=== PATIENT | female | born 1955 | race Caucasian/White ===

== ENCOUNTER 2019-09-19 06:51 | Day surgery (SDC) | payer BC ==
[2019-09-19] MEDS ORDERED: Lactated Ringers 1,000 ML IV SCH (07:00)
[2019-09-19] MEDS ORDERED: ASTRINGYN 8 GM TP ONE (07:11)
[2019-09-19] MEDS ORDERED: Lactated Ringers 1,000 ML IV ONE ×2 (07:11→07:44)
[2019-09-19] MEDS ORDERED: XYLOCAINE 1%/Epi 1:100000 MDV 20 ML ONE (07:22)
[2019-09-19] MEDS ORDERED: Versed 2 MG/2 ML Injection ONE (08:46)
[2019-09-19] MEDS ORDERED: Zofran 4 MG/2 ML VIAL ONE (08:46)
[2019-09-19] MEDS ORDERED: SUBLIMAZE 100 MCG/2 ML ONE (08:46)
[2019-09-19] MEDS ORDERED: DIPRIVAN 200 MG/20 ML IV ONE (08:46)
[2019-09-19] MEDS ORDERED: Decadron 4 MG INJ ONE (08:46)
[2019-09-19 10:16] VITALS: BP 132/55; PULSE 66; O2SAT 100
--- NOTE | 2019-09-20 14:28 | OP ---
SURGERY DATE: 09/19/2019 SURGERY TIME: 843 PREOPERATIVE DIAGNOSIS: 1. 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 POSTOPERATIVE DIAGNOSIS: 1. 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 PROCEDURE: 1. Loop electrosurgical excision procedure. SURGEON: Dr. Yevgeniy Driscoll. POOL TABLE MECHANIC: plastic surgery technician. ANESTHESIA: General. ESTIMATED BLOOD LOSS: Minimal. COMPLICATIONS: None. FINDINGS: The risks, benefits, indications, and alternatives of the procedure were reviewed with the patient prior to the procedure. Patient understood the risks of infection, bleeding, bowel injury, bladder injury, ureteral injury, decreased sex drive, anorgasmia, and thrombophilia disorder that may be associated with this procedure and desires to have this procedure as a possible means to alleviate her current medical condition. DESCRIPTION OF PROCEDURE: At this point, the patient was taken to the operating room, given general anesthesia, placed in the dorsal lithotomy position, and prepped and draped in the usual sterile fashion. A curved speculum was then placed in the patient's vagina and the cervix was then circumferentially injected with 1% Lidocaine with epinephrine. At this point, the looped instrument was then used and was used to excise the ectocervical portion in a right to left motion. The loop was taken through the ectocervical tissue with an end depth of 7-8 mm and it was done so without complication. In addition 2-3 mm of the endocervical tissue was taken as well. At this point, the loop artist model ball was placed on the surface of the cervix for further hemostasis. From this point, Monsel solution was placed on the cervix as well. At this point, all of our instruments were then removed from the patient's vaginal region. The patient was then taken out of the dorsal lithotomy position and was then taken to the recovery room in stable condition. All instruments and laps were accounted for X 2.
== END 2019-09-19 10:25 | disposition home or self-care (01) ==
LOC: SDC 06:51
PROVIDERS: ATTEND Obstetrics & Gynecology
DX: R87.619 Unspecified abnormal cytological findings in specimens from cervix uteri (principal); R87.810 Cervical high risk human papillomavirus (HPV) DNA test positive
CPT/HCPCS: 57460; 58110; J1100; J2250; J2405; J2704; J3010; A9270-GY

== ENCOUNTER 2025-02-25 14:40 | Emergency (ER) | payer MEDICARE, OTHER ==
[2025-02-25 14:57] VITALS: TEMP 97.8
--- NOTE | 2025-02-25 15:33 | ERPHSYRPT ---
- History of Present Illness Time Seen by Provider: 02/25/25 15:00 Historian: patient Exam Limitations: no limitations Patient Subjective Stated Complaint: constipation Triage Nursing Assessment: Patient walks to the bed, breathing is easy,skin warm and dry. She states that she has not had a bowel movement since Wednesday. She does have a history of constipation. She also did an enema this morning and states she had some blood when she wiped. Her belly is tender to palpation and bowel sounds are present time 4. Physician History: 70-year-old female presents to the emergency room with constipation patient reports she has had decreased stool output since Wednesday she has tried enemas and laxatives and suppositories with minimal improvement or improvement she has had constant patient in the past she has had colonoscopy in the past has been 10 years she is due for 1 now she denies any vomiting she denies any nausea she denies any prior abdominal surgeries denies any chest pain or shortness of breath denies any rash she is now in ED for further eval Timing/Duration: day(s) (5) Activities at Onset: none Abdominal Pain Onset Location: generalized abdomen Pain Radiation: no radiation Severity of Pain-Max: mild Severity of Pain-Current: mild Modifying Factors: Improves With: nothing Associated Symptoms: No headache, No neck pain, No rash, No shortness of breath Allergies/Adverse Reactions: No Known Drug Allergies Allergy (Verified 09/19/19 07:18) Home Medications: ALPRAZolam [Xanax 0.5 mg] 1 mg PO TID PRN 07/27/14 [History] Levothyroxine Sodium 25 Mcg [Synthroid 25 Mcg] 25 mcg PO DAILY 07/27/14 [History] Valacyclovir HCl [Valacyclovir] 1,000 mg PO DAILY 09/15/19 [History] Trazodone HCl 100 mg PO DAILY 02/25/25 [History] Hx Tetanus, Diphtheria Vaccination/Date Given: No Hx Influenza Vaccination/Date Given: Yes Hx Pneumococcal Vaccination/Date Given: Yes Travel Risk - International Travel Have you traveled outside of the country in past 3 weeks: No - Emerging Infectious Disease Are you exhibiting symptoms associated with any current EIDs: No - Review of Systems Constitutional: No Fever, No Chills Eyes: No Symptoms Ears, Nose, & Throat: No Symptoms Respiratory: No Cough, No Dyspnea Cardiac: No Chest Pain, No Edema, No Syncope Abdominal/Gastrointestinal: Abdominal Pain, Constipation, No Nausea, No Vomiting, No Diarrhea Genitourinary Symptoms: No Dysuria Musculoskeletal: No Back Pain, No Neck Pain Skin: No Rash Neurological: No Dizziness, No Focal Weakness, No Sensory Changes Psychological: No Symptoms Endocrine: No Symptoms All Other Systems: Reviewed and Negative - Past Medical History Pertinent Past Medical History: Yes Neurological History: No Pertinent History ENT History: No Pertinent History Cardiac History: No Pertinent History Respiratory History: No Pertinent History Endocrine Medical History: Hypothyroidism Musculoskeletal History: No Pertinent History GI Medical History: No Pertinent History History: No Pertinent History Psycho-Social History: Anxiety Female Reproductive Disorders: No Pertinent History Other Medical History: abnormal pap, anxiety - Past Surgical History Past Surgical History: Yes Neuro Surgical History: No Pertinent History Cardiac: No Pertinent History Respiratory: No Pertinent History Gastrointestinal: No Pertinent History, Hernia Repair Genitourinary: No Pertinent History Musculoskeletal: Orthopedic Surgery Female Surgical History: Lumpectomy Other Surgical History: back surgery,. breast lumpectomy x2 - Social History Smoking Status: Former smoker Drug Use: none - Social Determinants of Health Will the patient participate in the screening: Yes Do you worry about a steady place to live?: No Do you have any problems with any of the following?: No known problems In the past 12 months,have you had to go without utilities?: No Transportation Issues: No Has anyone in your support network made you feel unsafe?: No Have you or anyone in your house had to go w/o enough food: No - Nursing Vital Signs Nursing Vital Signs: Initial Vital Signs Temperature 97.8 F 02/25/25 14:47 Pulse Rate 85 02/25/25 14:47 Respiratory Rate 16 02/25/25 14:47 Blood Pressure 133/93 02/25/25 14:47 O2 Sat by Pulse Oximetry 97 02/25/25 14:47 Pain Scale Pain Intensity 4 - Physical Exam General Appearance: no apparent distress, alert Eye Exam: PERRL/EOMI, eyes nml inspection Ears, Nose, Throat Exam: normal ENT inspection, pharynx normal, moist mucous membranes Neck Exam: normal inspection, non-tender, supple, full range of motion Respiratory Exam: normal breath sounds, lungs clear, No respiratory distress Cardiovascular Exam: regular rate/rhythm, normal heart sounds Gastrointestinal/Abdomen Exam: soft, No tenderness, No mass Back Exam: normal inspection, normal range of motion, No CVA tenderness, No vertebral tenderness Extremity Exam: normal inspection, normal range of motion, pelvis stable Neurologic Exam: alert, oriented x 3, cooperative, normal mood/affect, nml cerebellar function, sensation nml, No motor deficits Skin Exam: normal color, warm, dry SpO2: 97 Ordered Tests: Active Orders 24 hr Category Date Time Status Enema STAT Care 02/25/25 17:55 Active IV Insertion STAT Care 02/25/25 15:13 Active NPO (ED) STAT Care 02/25/25 15:13 Active ABDOMEN AND PELVIS W CONTRAST [CT] Stat Exams 02/25/25 15:12 Completed CBC W DIFF Stat Lab 02/25/25 15:45 Completed CMP Stat Lab 02/25/25 15:45 Completed LIPASE Stat Lab 02/25/25 15:45 Completed Lactic Acid Stat Lab 02/25/25 15:12 Completed UA W/RFX UR CULTURE Stat Lab 02/25/25 16:21 Completed Medication Summary Discontinued Medications Generic Name Dose Route Start Last Admin Trade Name Jamesq PRN Reason Stop Dose Admin Sodium Chloride 1,000 mls @ 999 mls/hr 02/25/25 15:13 02/25/25 17:19 Sodium Chloride 0.9% 1000 Ml IV 02/25/25 16:13 Infused .Q1H1M STA Infusion Sodium Chloride Confirm 02/25/25 15:44 Sodium Chloride 0.9% 1000 Ml Administered 02/25/25 15:45 Dose 1,000 mls @ ud .ROUTE .STK-MED ONE Lab/Rad Data: Laboratory Result Diagrams 02/25/25 15:45 02/25/25 15:45 Laboratory Results 02/25/25 02/25/25 02/25/25 Range/Units 16:21 15:45 15:45 WBC 10.4 H (3.98-10.04) x10^3/uL RBC 4.12 (3.93-5.22) x10^6/uL Hgb 13.8 (11.2-15.7) g/dL Hct 40.5 (34.1-44.9) % MCV 98.3 H (79.4-94.8) fL MCH 33.5 H (25.6-32.2) pg MCHC 34.1 (32.2-35.5) g/dL RDW 12.1 (11.7-14.4) % Plt Count 274 (182-369) x10^3/uL MPV 9.6 (9.4-12.3) fL Gran % 63.7 (34.0-71.1) % Immature Gran % (Auto) 0.3 (0.001-0.429) % Nucleat RBC Rel Count 0.0 (0.00-0.2) % Eos # (Auto) 0.24 (0.04-0.36) x10^3/uL Immature Gran # (Auto) 0.03 (0.001-0.031) x10^3u/L Absolute Lymphs (auto) 2.77 (1.18-3.74) x10^3/uL Absolute Monos (auto) 0.64 (0.24-0.86) x10^3/uL Absolute Nucleated RBC 0.00 (0.00-0.012) x10^3u/L Lymphocytes % 26.6 (19.3-51.7) % Monocytes % 6.1 (4.7-12.5) % Eosinophils % 2.3 (0.7-5.8) % Basophils % 1.0 (0.1-1.2) % Absolute Granulocytes 6.64 H (1.56-6.13) x10^3/uL Basophils # 0.10 H (0.01-0.08) x10^3/uL Sodium 137 (135-145) mmol/L Potassium 3.7 (3.5-5.1) mmol/L Chloride 103 (98-107) mmol/L Carbon Dioxide 27 (22-30) mmol/L Anion Gap 11.2 (5-15) MEQ/L BUN 14 (7-17) mg/dL Creatinine 1.07 H (0.52-1.04) mg/dL Estimated GFR 56.2 ML/MIN Glucose 99 (74-106) mg/dL Lactic Acid (0.4-2.0) Calcium 9.5 (8.4-10.2) mg/dL Total Bilirubin 0.50 (0.2-1.3) mg/dL AST 42 H (14-36) U/L ALT 22 (0-35) U/L Alkaline Phosphatase 50 (38-126) U/L Serum Total Protein 8.0 (6.3-8.2) g/dL Albumin 4.8 (3.5-5.0) g/dL Lipase 53 (23-300) U/L Urine Color Yellow (Yellow) Urine Appearance Clear (Clear) Urine pH 6.5 (4.6-8.0) Ur Specific [place] <=1.005 (1.005-1.030) Urine Protein Negative (Negative) Urine Glucose (UA) Negative (Negative) mg/dL Urine Ketones Negative (Negative) Urine Blood Negative (Negative) Urine Nitrite Negative (Negative) Urine Bilirubin Negative (Negative) Urine Urobilinogen 0.2 (0.2) mg/dL Ur Leukocyte Esterase Negative (Negative) U Hyaline Cast (Auto) NONE SEEN (0-2) /LPF Urine Microscopic RBC 0-2 (0-5) /HPF Urine Microscopic WBC 0-2 (0-5) /HPF Ur Epithelial Cells None Seen (None Seen) /HPF Urine Bacteria None Seen (None Seen) /HPF Urine Culture Reflexed NO (NO) 02/25/25 Range/Units 15:12 WBC (3.98-10.04) x10^3/uL RBC (3.93-5.22) x10^6/uL Hgb (11.2-15.7) g/dL Hct (34.1-44.9) % MCV (79.4-94.8) fL MCH (25.6-32.2) pg MCHC (32.2-35.5) g/dL RDW (11.7-14.4) % Plt Count (182-369) x10^3/uL MPV (9.4-12.3) fL Gran % (34.0-71.1) % Immature Gran % (Auto) (0.001-0.429) % Nucleat RBC Rel Count (0.00-0.2) % Eos # (Auto) (0.04-0.36) x10^3/uL Immature Gran # (Auto) (0.001-0.031) x10^3u/L Absolute Lymphs (auto) (1.18-3.74) x10^3/uL Absolute Monos (auto) (0.24-0.86) x10^3/uL Absolute Nucleated RBC (0.00-0.012) x10^3u/L Lymphocytes % (19.3-51.7) % Monocytes % (4.7-12.5) % Eosinophils % (0.7-5.8) % Basophils % (0.1-1.2) % Absolute Granulocytes (1.56-6.13) x10^3/uL Basophils # (0.01-0.08) x10^3/uL Sodium (135-145) mmol/L Potassium (3.5-5.1) mmol/L Chloride (98-107) mmol/L Carbon Dioxide (22-30) mmol/L Anion Gap (5-15) MEQ/L BUN (7-17) mg/dL Creatinine (0.52-1.04) mg/dL Estimated GFR ML/MIN Glucose (74-106) mg/dL Lactic Acid 0.9 (0.4-2.0) Calcium (8.4-10.2) mg/dL Total Bilirubin (0.2-1.3) mg/dL AST (14-36) U/L ALT (0-35) U/L Alkaline Phosphatase (38-126) U/L Serum Total Protein (6.3-8.2) g/dL Albumin (3.5-5.0) g/dL Lipase (23-300) U/L Urine Color (Yellow) Urine Appearance (Clear) Urine pH (4.6-8.0) Ur Specific [place] (1.005-1.030) Urine Protein (Negative) Urine Glucose (UA) (Negative) mg/dL Urine Ketones (Negative) Urine Blood (Negative) Urine Nitrite (Negative) Urine Bilirubin (Negative) Urine Urobilinogen (0.2) mg/dL Ur Leukocyte Esterase (Negative) U Hyaline Cast (Auto) (0-2) /LPF Urine Microscopic RBC (0-5) /HPF Urine Microscopic WBC (0-5) /HPF Ur Epithelial Cells (None Seen) /HPF Urine Bacteria (None Seen) /HPF Urine Culture Reflexed (NO) - Progress Progress Note: 02/25/25 17:54 FINDINGS: Liver: Normal in size, shape, and density. A right lobe well-defined hypodense lesion measuring around 8 x 6 mm, likely cyst. A similar hypodensity measuring 7 x 6 mm in the left lobe, superior segment. The enhancement pattern is normal in the arterial and venous phases. Gallbladder and Biliary System: The gallbladder is normal in size and shape. No wall thickening, pericholecystic fluid, or gallstones were identified. The common bile duct is not dilated. Pancreas: The pancreatic head, body, and tail are visualized and appear normal in size and density. No pancreatic masses, cysts, or calcifications noted. Enhancement is normal in the arterial and venous phases. Spleen: Normal in size, shape, and density. No splenic lesions or masses identified. Enhancement is normal in the arterial and venous phases. Kidneys and Adrenal Glands: Both kidneys are normal in size, shape, and position. Cortical thickness is within normal limits. Few right renal non-obstructing tiny caluli.No hydronephrosis. Adrenal glands are unremarkable. Enhancement is normal in the arterial and venous phases. Appendix: The appendix is normal in size, 6.5 mm, without clint-appendiceal fat stranding, and without an appendicolith. No evidence of appendiceal abscess or perforation. Abdominal Aorta and Vessels: The abdominal aorta and major branches are patent without evidence of an aneurysm or significant atherosclerosis. Enhancement is normal in the arterial and venous phases. Peritoneal and Retroperitoneal Structures: Mild free fluid at both para-colic gutters. Non-significant aortic atheromatous calcifications. Bowel Loops: Moderately fecal-filled colon, with mild wall thickening of the distal descending and sigmoid colon. Few uncomplicated sigmoid diverticula. No evidence of bowel obstruction. Urinary bladder: Normally distended with normal wall thickness. Uterus: Normal in size. No focal lesions. Lung bases show a left lower lobar calcific nodule, measuring around 7 x 6 mm, likely a granuloma. Bibasal atelectatic bands were also noted. Lumbar spondylo-degenerative changes. IMPRESSION: 1. Moderately fecal-filled colon, with mild wall thickening of the distal descending and sigmoid colon, suggestive of stercoral colitis. No bowel obstruction. Advised clinical correlation. 2. Mild free fluid at both para-colic gutters. 3. Hepatic lobe hypodense foci, likely cysts or hemangioma. 4. A few right renal non-obstructing tiny caluli. 02/25/25 17:59 Patient was disimpacted in the ED patient was given mineral oil enema - Departure Departure Disposition: Home Clinical Impression: Stercoral colitis Constipation Qualifiers: Constipation type: unspecified constipation type Qualified Code(s): K59.00 - Constipation, unspecified Condition: Stable Critical Care Time: No Referrals: NICOLAS GEE NP [Primary Care Provider, [facility]] - Follow up/PCP as directed CARYL WOODALL [NON-STAFF PHY W/O PRIVILEGES, GASTROENTEROLOGY] - Follow up/PCP as directed KARLEE ROMEO JR [NON-STAFF PHY W/O PRIVILEGES, GASTROENTEROLOGY] - Follow up/PCP as directed ANETTE WOLF MD [NON-STAFF PHY W/O PRIVILEGES, GASTROENTEROLOGY] - Follow up/PCP as directed Instructions: Constipation, Adult (DC) Prescriptions: Glycerin Supp. [Glycerin Adult Suppository] 1 supp.rect RC DAILY #1 supp.rect
[2025-02-25 15:46] LABS: BASOPHIL % 1.0 % (0.1-1.2); Basophil (Absolute #) 0.10 x10^3/uL (0.01-0.08); Eosinophil (Absolute #) 0.24 x10^3/uL (0.04-0.36); Hematocrit 40.5 % (34.1-44.9); Hemoglobin 13.8 g/dL (11.2-15.7); IMMATURE GRAN # 0.03 x10^3u/L (0.001-0.031); IMMATURE GRAN % 0.3 % (0.001-0.429); Lymphocyte (Absolute #) 2.77 x10^3/uL (1.18-3.74); Mean Corpuscular Hemoglobin 33.5 pg (25.6-32.2); Mean Corpuscular Hgb Concent. 34.1 g/dL (32.2-35.5); Monocyte (Absolute #) 0.64 x10^3/uL (0.24-0.86); NUCLEATED RBC # 0.00 x10^3u/L (0.00-0.012); NUCLEATED RBC % 0.0 % (0.00-0.2); Platelet Count 274 x10^3/uL (182-369); Red Blood Count 4.12 x10^6/uL (3.93-5.22); White Blood Count 10.4 x10^3/uL (3.98-10.04)
[2025-02-25 16:17] LABS: Calcium 9.5 mg/dL (8.4-10.2); Carbon Dioxide 27.0 mmol/L (22-30); Creatinine 1 1.07 mg/dL (0.52-1.04); EST GLOMERULAR FILTRATION RATE 56.2 ML/MIN; Glucose 99.0 mg/dL (74-106); Potassium 3.7 mmol/L (3.5-5.1); SGOT/AST 42.0 U/L (14-36); SGPT/ALT 22.0 U/L (0-35); Total Protein 8.0 g/dL (6.3-8.2)
[2025-02-25 16:30] LABS: Glucose, Urine Negative (Negative); Protein,Urine Dip Negative (Negative); RBC 0-2 /HPF (0-5); WBC 0-2 /HPF (0-5)
--- NOTE | 2025-02-25 17:52 | XRAY ---
CLINICAL HISTORY: abd pain r/o obsturction COMPARISON: None. TECHNIQUE: CT of the abdomen was performed with intravenous contrast, with the following protocol: axial images and reconstructed coronal and sagittal images. Non-contrast images were initially acquired, followed by contrast-enhanced images acquired in arterial and venous phases. Intravenous contrast 80 cc Isovue 370 was administered using automated injection techniques. One of the following dose reduction techniques was utilized for this exam: Automated exposure control, adjustment of the mA and/or kV according to patient size, and use of iterative reconstruction. FINDINGS: Liver: Normal in size, shape, and density. A right lobe well-defined hypodense lesion measuring around 8 x 6 mm, likely cyst. A similar hypodensity measuring 7 x 6 mm in the left lobe, superior segment. The enhancement pattern is normal in the arterial and venous phases. Gallbladder and Biliary System: The gallbladder is normal in size and shape. No wall thickening, pericholecystic fluid, or gallstones were identified. The common bile duct is not dilated. Pancreas: The pancreatic head, body, and tail are visualized and appear normal in size and density. No pancreatic masses, cysts, or calcifications noted. Enhancement is normal in the arterial and venous phases. Spleen: Normal in size, shape, and density. No splenic lesions or masses identified. Enhancement is normal in the arterial and venous phases. Kidneys and Adrenal Glands: Both kidneys are normal in size, shape, and position. Cortical thickness is within normal limits. Few right renal non-obstructing tiny caluli.No hydronephrosis. Adrenal glands are unremarkable. Enhancement is normal in the arterial and venous phases. Appendix: The appendix is normal in size, 6.5 mm, without clint-appendiceal fat stranding, and without an appendicolith. No evidence of appendiceal abscess or perforation. Abdominal Aorta and Vessels: The abdominal aorta and major branches are patent without evidence of an aneurysm or significant atherosclerosis. Enhancement is normal in the arterial and venous phases. Peritoneal and Retroperitoneal Structures: Mild free fluid at both para-colic gutters. Non-significant aortic atheromatous calcifications. Bowel Loops: Moderately fecal-filled colon, with mild wall thickening of the distal descending and sigmoid colon. Few uncomplicated sigmoid diverticula. No evidence of bowel obstruction. Urinary bladder: Normally distended with normal wall thickness. Uterus: Normal in size. No focal lesions. Lung bases show a left lower lobar calcific nodule, measuring around 7 x 6 mm, likely a granuloma. Bibasal atelectatic bands were also noted. Lumbar spondylo-degenerative changes. IMPRESSION: 1. Moderately fecal-filled colon, with mild wall thickening of the distal descending and sigmoid colon, suggestive of stercoral colitis. No bowel obstruction. Advised clinical correlation. 2. Mild free fluid at both para-colic gutters. 3. Hepatic lobe hypodense foci, likely cysts or hemangioma. 4. A few right renal non-obstructing tiny caluli. Electronically Signed by: Rainer Rivera MD. (02/25/2025 17:51:47 EST)
[2025-02-25 17:55] VITALS: O2SAT 97
[2025-02-25 18:35] VITALS: BP 145/76; PULSE 88; RESP 18
== END 2025-02-25 18:35 | disposition home or self-care (01) ==
LOC: ED 14:40
DX: K52.89 Other specified noninfective gastroenteritis and colitis (principal); K59.00 Constipation, unspecified; Z79.899 Other long term (current) drug therapy